=== PATIENT | male | born 1950 | race Caucasian/White ===

== ENCOUNTER 2016-05-16 03:18 | Emergency (ER) | payer MEDICAID ==
[~2016-05-16] VITALS: Ht 185.4 cm; Wt 90.0 kg
[~2016-05-16 03:18] MED LIST: CYCLOBENZAPRINE5 M1 PO; DIOVAN320 MG PO; EXFORGE 10/320 PO; FLEXERIL 1010 MG/TAB PO; HCTZ 25MG25 MG PO; HYGROTON 2525 MG/TAB PO; ISMO 20MG20 MG; ISORDIL 10MG10 MG PO; LIPITOR 80MG80 MG PO; LOPRESSOR 550 MG/TAB PO; MINOXIDIL 2.5 PO; NIACIN250 M2 PO; NITROSTAT0.4 MG SL; OXYCONTIN15 MG PO; PERCOCET 325 MG1 TA2 PO; PERCOCET 325 MG1 TA3 PO; PRILOSEC 20MG20 MG PO; PRINIVIL40 MG PO; PROTONIX 40MG T40 MG PO; PROTONIX I40 MG/VIAL; TOPROL XL100 MG PO; WELLBUTRIN SR150 M1 PO; ZOCOR40 MG PO; ZYBAN150 MG PO
[2016-05-16 03:21] VITALS: TEMP 98.8
[2016-05-16 04:19] VITALS: BP 132/86; PULSE 92
== END 2016-05-16 04:21 | disposition home or self-care (01) ==
LOC: COL.ER 03:18
DX: M54.5 Low back pain (principal); I10 Essential (primary) hypertension; X50.0XXA Overexertion from strenuous movement or load, initial encounter; Y93.F2 Activity, caregiving, lifting; F17.200 Nicotine dependence, unspecified, uncomplicated
CPT/HCPCS: J1170

== ENCOUNTER 2016-11-10 23:01 | Emergency (ER) | payer MEDICAID ==
[~2016-11-10] VITALS: Ht 185.4 cm; Wt 81.8 kg
[2016-11-10 23:04] VITALS: TEMP 98
[2016-11-10] MEDS ORDERED: MINOXIDIL 2.5 PO (23:11)
[2016-11-10] MEDS ORDERED: ZANAFLEX 4MG TAB4 MG PO (23:12)
[2016-11-10] MEDS ORDERED: NIACOR500 MG PO (23:13)
[2016-11-11 00:02] LABS: BASO % 0.3 % (0.0-2.0); EOS # 0.1 (0.0-0.7); EOS % 1.2 % (0-4.0); GRAN # 5.2 (1.4-6.5); GRAN % 46.3 % (42.2-75.2); LYMPH # 5.1 (1.2-3.4); LYMPH % 45.1 % (20.0-51.0); MEAN CELL VOLUME 98 fl (80.0-100.0); MEAN CORPUSCULAR HGB CONC 35 g/dl (33.0-37.0); MEAN PLATELET VOLUME 9.3 fl (7.4-10.4); MONO # 0.7 (0.1-0.6); MONO % 6.4 % (1.7-9.3); PLATELET COUNT 214 K/mm3 (130-400); RED BLOOD COUNT 5.51 M/mm3 (4.20-5.60); REDCELL DISTRIBUTION WIDTH-CV 14.6 % (11.5-14.5); WHITE BLOOD COUNT 11.2 K/mm3 (4.8-10.8)
[2016-11-11 00:03] LABS: HEMATOCRIT 54.2 % (42.0-52.0); HEMOGLOBIN 18.7 g/dl (13.5-18.0); MEAN CORPUSCULAR HEMOGLOBIN 34 pg (27.0-31.0)
[2016-11-11 00:04] LABS: PH 6 (5-8); SQUAMOUS EPITHELIAL None Seen /hpf; URINE APPEARANCE Clear; URINE BACTERIA None Seen /hpf; URINE BILIRUBIN Negative (NEGATIVE); URINE BLOOD Negative (NEGATIVE); URINE COLOR Straw; URINE GLUCOSE Negative (NEGATIVE); URINE KETONE Negative (NEGATIVE); URINE RBC None Seen /hpf; URINE UROBILINOGEN Negative (NEGATIVE); URINE WBC None Seen /hpf
[2016-11-11 00:11] LABS: ADJUSTED CALCIUM 8.8 mg/dL (8.4-10.2); ALANINE AMINOTRANSFERASE 77 U/L (21-72); ALBUMIN 4.2 gm/dL (3.5-5.0); ALKALINE PHOSPHATASE 69 U/L (50-136); ANION GAP 17 mmol/L (7-16); BILIRUBIN,TOTAL 0.6 mg/dL (0.0-1.0); BLOOD UREA NITROGEN 4 mg/dL (9-20); CARBON DIOXIDE 21 mmol/L (22-30); CHLORIDE 106 mmol/L (98-107); CREATININE, serum 0.72 mg/dL (0.66-1.25); GLUCOSE 98 mg/dL (74-106); POTASSIUM 3.3 mmol/L (3.4-5.0); SODIUM 144 mmol/L (137-145)
[2016-11-11 00:31] LABS: TROPONIN-I < 0.012 ng/mL (0.000-0.034)
[2016-11-11 00:38] VITALS: BP 124/77
[2016-11-11 01:44] VITALS: PULSE 89
== END 2016-11-11 01:44 | disposition home or self-care (01) ==
LOC: COL.ER 23:01
PROVIDERS: Emergency Medicine
DX: S39.012A Strain of muscle, fascia and tendon of lower back, initial encounter (principal); F10.129 Alcohol abuse with intoxication, unspecified; I10 Essential (primary) hypertension; F17.200 Nicotine dependence, unspecified, uncomplicated; Y90.8 Blood alcohol level of 240 mg/100 ml or more; W10.9XXA Fall (on) (from) unspecified stairs and steps, initial encounter; Y92.009 Unspecified place in unspecified non-institutional (private) residence as the place of occurrence of the external cause
CPT/HCPCS: J1170; J7030

== ENCOUNTER 2016-12-06 21:33 | Emergency (ER) | payer MEDICARE, MEDICAID ==
[~2016-12-06 21:33] MED LIST changes: +NIACOR500 MG PO; +ZANAFLEX 4MG TAB4 MG PO
[2016-12-06 21:34] VITALS: TEMP 97
[2016-12-06 22:02] LABS: BASO % 0.3 % (0.0-2.0); EOS # 0.1 (0.0-0.7); GRAN # 5.2 (1.4-6.5); GRAN % 53.8 % (42.2-75.2); HEMATOCRIT 52.6 % (42.0-52.0); HEMOGLOBIN 18.4 g/dl (13.5-18.0); LYMPH # 3.6 (1.2-3.4); MEAN CELL VOLUME 98 fl (80.0-100.0); MEAN CORPUSCULAR HEMOGLOBIN 34 pg (27.0-31.0); MEAN CORPUSCULAR HGB CONC 35 g/dl (33.0-37.0); MEAN PLATELET VOLUME 9.4 fl (7.4-10.4); MONO # 0.7 (0.1-0.6); MONO % 7.4 % (1.7-9.3); PLATELET COUNT 227 K/mm3 (130-400); RED BLOOD COUNT 5.38 M/mm3 (4.20-5.60); REDCELL DISTRIBUTION WIDTH-CV 13.4 % (11.5-14.5); WHITE BLOOD COUNT 9.7 K/mm3 (4.8-10.8)
[2016-12-06 22:11] LABS: ADJUSTED CALCIUM 9.2 mg/dL (8.4-10.2); ALBUMIN 4.3 gm/dL (3.5-5.0); BILIRUBIN,TOTAL 0.8 mg/dL (0.0-1.0); CALCIUM 9.4 mg/dL (8.4-10.2); CREATININE, serum 0.73 mg/dL (0.66-1.25); POTASSIUM 3.3 mmol/L (3.4-5.0); TOTAL PROTEIN 8.2 gm/dL (6.4-8.2)
[2016-12-06] MEDS ORDERED: ALDACTONE 25MG25 M1 PO (22:38)
[2016-12-06] MEDS ORDERED: COMBIRESP IH (22:40)
[2016-12-06] MEDS ORDERED: CHANTIX 1MG1 MG PO (22:41)
[2016-12-06 23:04] LABS: PH 6 (5-8); SQUAMOUS EPITHELIAL None Seen /hpf; URINE APPEARANCE Clear; URINE BACTERIA None Seen /hpf; URINE BILIRUBIN Negative (NEGATIVE); URINE BLOOD Negative (NEGATIVE); URINE COLOR Straw; URINE GLUCOSE Negative (NEGATIVE); URINE KETONE Negative (NEGATIVE); URINE RBC 0-2 /hpf; URINE UROBILINOGEN Negative (NEGATIVE); URINE WBC 0-2 /hpf
[2016-12-06] MEDS ORDERED: PERCOCET 325 MG1 TA3 PO (23:50)
[2016-12-06 23:53] VITALS: BP 137/90; PULSE 93
== END 2016-12-06 23:58 | disposition home or self-care (01) ==
LOC: COL.ER 21:33
PROVIDERS: Emergency Medicine
DX: S29.012A Strain of muscle and tendon of back wall of thorax, initial encounter (principal); S39.012A Strain of muscle, fascia and tendon of lower back, initial encounter; S06.9X9A Unspecified intracranial injury with loss of consciousness of unspecified duration, initial encounter; F10.120 Alcohol abuse with intoxication, uncomplicated; Y90.7 Blood alcohol level of 200-239 mg/100 ml; I10 Essential (primary) hypertension; E78.5 Hyperlipidemia, unspecified; F17.200 Nicotine dependence, unspecified, uncomplicated; R40.2412 Glasgow coma scale score 13-15, at arrival to emergency department; W13.2XXA Fall from, out of or through roof, initial encounter; Y92.028 Other place in mobile home as the place of occurrence of the external cause
CPT/HCPCS: J2765; J3010; J7030

== ENCOUNTER 2018-06-11 11:56 | Inpatient (IN) | payer MEDICAID ==
[2018-06-11] VITALS (575 sets, daily range): BP systolic 109–117; BP diastolic 62–79; PULSE 105–113; TEMP 97.9–98; O2SAT 84–95
[~2018-06-11] VITALS: Ht 185.4 cm; Wt 80.5 kg
[~2018-06-11 11:56] MED LIST changes: +ALDACTONE 25MG25 M1 PO; +CHANTIX 1MG1 MG PO; +COMBIRESP IH
[2018-06-11 12:13] LABS: BASO % 0.2 % (0.0-2.0); EOS % 0.2 % (0-4.0); GRAN # 16.7 (1.4-6.5); GRAN % 84.8 % (42.2-75.2); HEMOGLOBIN 11.9 g/dl (13.5-18.0); INR 2.1 (0.8-3.0); LYMPH # 1.4 (1.2-3.4); LYMPH % 7.3 % (20.0-51.0); MEAN CELL VOLUME 103 fl (80.0-100.0); MEAN CORPUSCULAR HEMOGLOBIN 35 pg (27.0-31.0); MEAN CORPUSCULAR HGB CONC 34 g/dl (33.0-37.0); MEAN PLATELET VOLUME 10.6 fl (7.4-10.4); MONO # 1.4 (0.1-0.6); PLATELET COUNT 148 K/mm3 (130-400); PROTHROMBIN TIME 23.5 SECONDS (9.7-12.8); RED BLOOD COUNT 3.37 M/mm3 (4.20-5.60); REDCELL DISTRIBUTION WIDTH-CV 15.6 % (11.5-14.5)
[2018-06-11 12:14] LABS: HEMATOCRIT 34.7 % (42.0-52.0)
[2018-06-11 12:18] LABS: ALBUMIN 2.7 gm/dL (3.5-5.0); BILIRUBIN,TOTAL 5.5 mg/dL (0.0-1.0); CALCIUM 8.4 mg/dL (8.4-10.2); CREATININE, serum 0.8 mg/dL (0.66-1.25); POTASSIUM 4.2 mmol/L (3.4-5.0); TOTAL PROTEIN 7.9 gm/dL (6.4-8.2)
[2018-06-11 13:15] LABS: TROPONIN-I 0.029 ng/mL (0.000-0.035)
[2018-06-11] MEDS ORDERED: DULERA1 AR1 INH (13:15)
[2018-06-11] MEDS ORDERED: PROBIOTIC ACID1 EAC3 PO (13:16)
[2018-06-11] MEDS ORDERED: K-DUR 10 MEQ T10 MEQ PO (13:16)
--- NOTE | 2018-06-11 14:59 | NUR ---
Pt was transfered to ICU 7 from ED. He is awake and A/Ox4. He is unable to transfer from cart to bed independently, assistance x3 required. Saline lock to right AC is free of complications. Resp are labored at rest, pt remains on 5L O2 per oxymask. Pt states he does not know the medications he takes and does not have a list. Dr. Hernandez's office notified and to fax current list. Allergies and pharm updated.
[2018-06-11 18:19] LABS: IRON,SERUM 43 ug/dL (35-150)
[2018-06-11 18:28] LABS: TOTAL IRON BINDING CAPACITY 148 ug/dL (261-462)
--- NOTE | 2018-06-11 18:44 | NUR ---
Pt has had an uneventful shift since arriving to ICU. He is attempting to use bed mcmillan. Still have not received fax from Dr. Hernandez's office regarding current med list.
[2018-06-11 18:55] LABS: FERRITIN 755 ng/mL (18-464)
--- NOTE | 2018-06-11 19:15 | NUR ---
BEDSIDE REPORT RECEIVED FROM SELVIN FANG RN. PATIENT HAD INCONTINENT BM IN BED. COMPLETE BED LINEN CHANGE DONE AT THIS TIME. VS WNL. SPO2 DROPS TO 86% PATIENT MOVES AROUND IN BED. HE HAS AUDIBLE WHEEZES. RT CALLED FOR BREATHING TREATMENT. WILL CONTINUE TO MONITOR.
--- NOTE | 2018-06-11 19:35 | NUR ---
pt asked for breathing tx feeling short of breath. states after tx that the tx helped alot.
--- NOTE | 2018-06-11 22:48 | NUR ---
pt called for breathing tx he got up to bedside commode and was short of breath. pt was put up to 10l oxymask only sating 86%. prn tx given pt states it helped alot. shortness of breath did get better. i talked to pt about bipap and he said he would try it but not sure if he could handle it. after tx sats up to 92% on 10L oxymask. left on this o2 for the time being. RN notified.
--- NOTE | 2018-06-11 23:00 | NUR ---
Patient recently up to bedside commode for BM. His work of breathing increased and SP02 decreases at this time to 85%. Patient given 10L O2 via oxymask at this time. He SPo2 elevates to 90%. He is reminded to slow his breathing, as he is becoming tachypneic. Patient transfers well with 1:1 assist. He is assisted back to be and RT called for breathing treatment.
--- NOTE | 2018-06-11 23:27 | NUR ---
I CALLED [facility] TO TALK TO THEM ABOUT PT'S INCREASING WORK OF BREATHING AND INCREASE IN OXYGEN USE. i ALSO TALKED TO THE [facility] NURSE ABOUT CHANGING PRN DUONEB TO Q4 AND PRN AND CHANGING ADVAIR TO PULMICORT SINCE PT CANNOT TAKE A DEEP ENOUGH BREATH TO GET THE ADVAIR IN. I SUGGESTED BIPAP AND SAID I HAD ALREADY TALKED ABOUT IT TO PT AND HE SAID HE WOULD TRY IT BUT NOT SURE IF HE CAN HANDLE IT. [facility] NURSE ASKED ME ABOUT BREATH SOUNDS AND AMOUNT OF O2 PT IS CURRENTLY ON 10L OXYMASK SATING 91%. [facility] NURSE SAID SHE WOULD PASS INFO ON TO DR. ARROYO.
[2018-06-12] VITALS (1190 sets, daily range): BP systolic 95–146; BP diastolic 59–74; PULSE 108–126; TEMP 97.9–99.8; O2SAT 61–100
[2018-06-12 00:51] LABS: ARTERIAL BLD GAS O2 SATURATION 93.1 % (92-100); ARTERIAL BLD GAS TCO2 CT 29.2; ARTERIAL BLOOD GAS BASE EXCESS 4.1 (-2-2); ARTERIAL BLOOD GAS PCO2 39.3 mmHg (35-45); ARTERIAL BLOOD GAS PO2 65.1 mmHg (80-100); ARTERIAL BLOOD GAS pH 7.47 (7.35-7.45)
--- NOTE | 2018-06-12 04:15 | NUR ---
Patient comes off tele at this time. I go to his room to check on him. He has disconnected himself from all monitors, incontinent of BM in bed, Patient is found sitting on commode. He is not wearing O2 and is dusky in color. I apply oxymask and then encourage him to slow his breathing and take deep breaths. I then inform him that the bed alarm will be implemented at this time for his safety.
--- NOTE | 2018-06-12 04:54 | NUR ---
pt found out of bed without o2 on sats are 84%, rr 36 labored. RN called me and I gave prn duoneb breathing tx. after tx on 12 oxy mask sats are 91%
[2018-06-12 05:09] LABS: BASO % 0.2 % (0.0-2.0); EOS # 0.1 (0.0-0.7); EOS % 0.5 % (0-4.0); GRAN # 14.9 (1.4-6.5); HEMATOCRIT 33.1 % (42.0-52.0); HEMOGLOBIN 11.3 g/dl (13.5-18.0); LYMPH # 2.1 (1.2-3.4); LYMPH % 11.2 % (20.0-51.0); MEAN CELL VOLUME 102 fl (80.0-100.0); MEAN CORPUSCULAR HEMOGLOBIN 35 pg (27.0-31.0); MEAN CORPUSCULAR HGB CONC 34 g/dl (33.0-37.0); MEAN PLATELET VOLUME 10.7 fl (7.4-10.4); MONO # 1.4 (0.1-0.6); MONO % 7.5 % (1.7-9.3); PLATELET COUNT 152 K/mm3 (130-400); RED BLOOD COUNT 3.25 M/mm3 (4.20-5.60); REDCELL DISTRIBUTION WIDTH-CV 15.1 % (11.5-14.5)
[2018-06-12 05:13] LABS: INR 1.9 (0.8-3.0); PROTHROMBIN TIME 21.1 SECONDS (9.7-12.8)
[2018-06-12 05:22] LABS: ALBUMIN 2.6 gm/dL (3.5-5.0); BILIRUBIN,TOTAL 5.2 mg/dL (0.0-1.0); CALCIUM 8.3 mg/dL (8.4-10.2); CREATININE, serum 0.81 mg/dL (0.66-1.25); TOTAL PROTEIN 7.6 gm/dL (6.4-8.2)
--- NOTE | 2018-06-12 07:14 | NUR ---
BEDSIDE REPORT GIVEN TO KAYE LIMA.
--- NOTE | 2018-06-12 07:15 | NUR ---
Report received from Anaya RESTREPO and care resumed.
--- NOTE | 2018-06-12 08:19 | NUR ---
Pt getting echo at this time.
--- NOTE | 2018-06-12 09:00 | NUR ---
Radiology here at bedside for paracentesis at this time.
[2018-06-12 09:52] LABS: PERITONEAL -POLYMORPHONUCLEAR 15.6 % (0-25); PERITONEAL FLUID RBC 1000 /mm3 (0-0)
--- NOTE | 2018-06-12 10:39 | NUR ---
After paracentesis pt given CBB with linen change. Pt does remain short of breath, sats mid 90's but pt does say it is "easier to breath". Will continue to monitor.
--- NOTE | 2018-06-12 13:46 | NUR ---
SW attended clincal rounds. Patient lives independently at home with his son. His PCP is Dr Hernandez and he obtains prescriptions from [facility]. Patient does not use any home health or medical equipment in the home. Patient does have advance directives and those forms are on his chart. SW will continue to follow and assist with any needs.
--- NOTE | 2018-06-12 14:30 | NUR ---
SEVERAL ATTEMPTS MADE TO PLACE PT ON BIPAP AT THIS TIME. ADJUSTED PRESSURES SEVERAL TIMES TO ATTEMPT TO MAKE PT COMFORTABLE. PT STATES, "IT IS JUST TOO MUCH" AND AT THIS TIME IS REFUSING TO WEAR BIPAP. DR. HORN AND DR. HIGUERA MADE AWARE.
--- NOTE | 2018-06-12 14:39 | NUR ---
Dr Paniagua here at this time.
--- NOTE | 2018-06-12 15:16 | NUR ---
Dr Paniagua and Dr Perez at bedside having meeting with patient and son regarding plan of care at this time.
--- NOTE | 2018-06-12 16:12 | NUR ---
SW met with patient and family about options if patient decides to go home with hospice care. JULIA contacted Aimee at [facility] to find out if patient's insurance covers hospice care and also to get more information on nursing and how much care patient will have. JULIA relayed all of this information to the patient and his family. At this time patient and family are deciding what they would like to do and once they make a decision, they will contact nurse and SW.
--- NOTE | 2018-06-12 16:24 | NUR ---
JULIA met with patient, family, nurse, and Dr about their decision. At this time patient has decided not to go hospice.
--- NOTE | 2018-06-12 17:04 | NUR ---
PT ON YET INTUBATED
--- NOTE | 2018-06-12 17:36 | NUR ---
PT INTUBATED WITH A #8.0 SECURED 24@LIP PER ANESTHESIA. [facility]. CONSISTANT, GOOD COLOR CHANGE ON CO2 DETECTOR. PT PLACED ON PREVIOUSLY ORDERED SETTINGS PER DR. HIGUERA. ABG AND CXR PENDING AT THIS TIME.
--- NOTE | 2018-06-12 18:00 | NUR ---
Anesthesia at bedside and left arterial line placed with appropriate wave form noted. Pt then intubated at 1736 with at 8.0 Et tube. OG placed to LIS with orange colored return. Pt in restraints. Will continue to follow.
[2018-06-12 18:35] LABS: ARTERIAL BLD GAS O2 SATURATION 98.1 % (92-100); ARTERIAL BLD GAS TCO2 CT 29.7; ARTERIAL BLOOD GAS BASE EXCESS 4.8 (-2-2); ARTERIAL BLOOD GAS HCO3 28.5 meq/L (22-26); ARTERIAL BLOOD GAS PCO2 38.6 mmHg (35-45); ARTERIAL BLOOD GAS PO2 116.6 mmHg (80-100); ARTERIAL BLOOD GAS pH 7.49 (7.35-7.45)
--- NOTE | 2018-06-12 18:55 | NUR ---
Followed up with [facility] regarding pt's blood pressure. IV sedation was decreased with did ask for PRN levophed drip if needed. [facility] will discuss and place orders accordingly.
--- NOTE | 2018-06-12 19:15 | NUR ---
Bedside report given to Farhana RESTREPO and Zuly RESTREPO and care transfered.
--- NOTE | 2018-06-12 21:14 | NUR ---
CHANGED VENT FILTER AND EMPTIED WATER DRAIN. PT SUCTIONED AND ORAL CARE DONE.
--- NOTE | 2018-06-12 23:52 | NUR ---
FIO2 TURNED DOWN TO 60% RN NOTIFIED.
[2018-06-13] VITALS (947 sets, daily range): BP systolic 84–131; BP diastolic 42–73; PULSE 100–125; TEMP 98.5–100.2; O2SAT 71–100
--- NOTE | 2018-06-13 01:42 | NUR ---
PT'S A-FALLON DISLODGE WHILE ATTEMPTING DRESSING CHANGE. E MELITON NOTIFIED.
--- NOTE | 2018-06-13 02:42 | NUR ---
FIO2 DECREASED TO 50% RN NOTIFIED
--- NOTE | 2018-06-13 04:04 | NUR ---
Called [facility] regarding consent for FFP as none found on chart. Patient unable to make medical decisions at this time. Son called; did not answer and unable to leave voicemail. [facility] nurse notified. As procedure is not considered urgent, physician cannot obtain consent for patient. Will have to hold off administering FFP until able to obtain consent from son. Will attempt to re-contact son.
--- NOTE | 2018-06-13 04:10 | NUR ---
Received clarification to titrate levophed order per hospital protocol.
[2018-06-13 05:04] LABS: MEAN CELL VOLUME 99 fl (80.0-100.0); MEAN CORPUSCULAR HGB CONC 35 g/dl (33.0-37.0); MEAN PLATELET VOLUME 10.6 fl (7.4-10.4); PLATELET COUNT 130 K/mm3 (130-400); RED BLOOD COUNT 2.58 M/mm3 (4.20-5.60); REDCELL DISTRIBUTION WIDTH-CV 15.6 % (11.5-14.5)
[2018-06-13 05:12] LABS: HEMATOCRIT 25.5 % (42.0-52.0); MEAN CORPUSCULAR HEMOGLOBIN 35 pg (27.0-31.0)
[2018-06-13 05:17] LABS: ALBUMIN 1.8 gm/dL (3.5-5.0); BILIRUBIN,TOTAL 3.3 mg/dL (0.0-1.0); CALCIUM 6.4 mg/dL (8.4-10.2); CREATININE, serum 0.67 mg/dL (0.66-1.25); TOTAL PROTEIN 5.4 gm/dL (6.4-8.2)
[2018-06-13 05:18] LABS: INR 2.2 (0.8-3.0); PROTHROMBIN TIME 24.9 SECONDS (9.7-12.8)
[2018-06-13 05:19] LABS: ARTERIAL BLD GAS O2 SATURATION 95.4 % (92-100); ARTERIAL BLD GAS TCO2 CT 29.6; ARTERIAL BLOOD GAS HCO3 28.4 meq/L (22-26); ARTERIAL BLOOD GAS PCO2 37.7 mmHg (35-45); ARTERIAL BLOOD GAS PO2 79.9 mmHg (80-100)
[2018-06-13 05:25] LABS: POTASSIUM 2.6 mmol/L (3.4-5.0)
--- NOTE | 2018-06-13 05:51 | NUR ---
SPUTUM CULTURE SENT
[2018-06-13 05:52] LABS: BAND 12 % (0-10); LYMPHOCYTE 10 % (20.0-51.0); NEUTROPHILS 68 % (42.0-75.2); PLATELET ESTIMATE DECREASED (NORMAL); TARGET CELLS 2+; TEAR DROP CELLS 1+
[2018-06-13 05:53] LABS: ANISOCYTOSIS 2+; POIKILOCYTOSIS 1+
--- NOTE | 2018-06-13 10:00 | NUR ---
Family members at bedside stating great concern for iman kenneyd. Consent obtained for blood product administration.
--- NOTE | 2018-06-13 12:30 | NUR ---
Procedural Timeout taken for Chest Tube placement with present. All in agreement. 2000mL of straw colored fluid drained by gravity that filled up first chamber while MD Jerad present. Chest tube clamped by containter exchanged. Output changed from straw colored to serosanguineous. Chamber packaging did not come with fluid for water seal - 50mL of sterile fluid added per MD Jerad into the chamber, and low suction applied. VSS remained stable, pt tolerated the procedure well. 14:00 - Pt's son and daughter at bedside and updated on pt status.
[2018-06-13 13:32] LABS: CERULOPLASMIN 23.2 mg/dL (())
--- NOTE | 2018-06-13 19:10 | NUR ---
RECEIVED REPORT AT BEDSIDE FROM KAYE BARONE.
--- NOTE | 2018-06-13 19:43 | NUR ---
Water changed and traps drained. changed out bacteria filters.
[2018-06-14] VITALS (907 sets, daily range): BP systolic 78–106; BP diastolic 49–65; PULSE 92–111; TEMP 98.2–100; O2SAT 64–100
[2018-06-14 05:07] LABS: ARTERIAL BLD GAS O2 SATURATION 96.8 % (92-100); ARTERIAL BLD GAS TCO2 CT 30.7; ARTERIAL BLOOD GAS BASE EXCESS 6.4 (-2-2); ARTERIAL BLOOD GAS HCO3 29.5 meq/L (22-26); ARTERIAL BLOOD GAS PCO2 37.1 mmHg (35-45); ARTERIAL BLOOD GAS PO2 93.2 mmHg (80-100); ARTERIAL BLOOD GAS pH 7.52 (7.35-7.45)
--- NOTE | 2018-06-14 05:12 | NUR ---
SHANECURTIS called talked to Miranda and gave her ABG results. She asked about what he has been getting RR and MV and I told her what his numbers have been. She said she would pass on to doctor and they would send over orders if they wanted anything changed.
[2018-06-14 05:32] LABS: BASO % 0.2 % (0.0-2.0); EOS # 0.3 (0.0-0.7); EOS % 2.3 % (0-4.0); GRAN % 74.6 % (42.2-75.2); HEMATOCRIT 29.4 % (42.0-52.0); HEMOGLOBIN 10.3 g/dl (13.5-18.0); LYMPH # 2.1 (1.2-3.4); LYMPH % 14.1 % (20.0-51.0); MEAN CELL VOLUME 98 fl (80.0-100.0); MEAN CORPUSCULAR HEMOGLOBIN 34 pg (27.0-31.0); MEAN CORPUSCULAR HGB CONC 35 g/dl (33.0-37.0); MEAN PLATELET VOLUME 10.1 fl (7.4-10.4); MONO # 1.2 (0.1-0.6); MONO % 8.3 % (1.7-9.3); PLATELET COUNT 119 K/mm3 (130-400)
[2018-06-14 05:45] LABS: ALBUMIN 2.3 gm/dL (3.5-5.0); CALCIUM 8.1 mg/dL (8.4-10.2); CREATININE, serum 1.01 mg/dL (0.66-1.25); MAGNESIUM 2.2 mg/dL (1.6-2.3); PHOSPHOROUS 3.7 mg/dL (2.5-4.5); POTASSIUM 3.6 mmol/L (3.4-5.0); TOTAL PROTEIN 6.7 gm/dL (6.4-8.2)
--- NOTE | 2018-06-14 07:15 | NUR ---
PHRMARTHAY NOTIFIED REGARDING PT'S VANCOMYCIN TROUGH AT 29.26, 0530 DOSE HELD BY THIS RN.
--- NOTE | 2018-06-14 07:22 | NUR ---
REPORT GIVEN TO KAYE SINGH. ALL LINES AND MEDICATIONS REVIEWED AT BEDSIDE. DRESSINGS FOR CHEST TUBE AND ABDOMINAL PUNCTURE CHANGED DURING SHIFT, ALL DRESSING CLEAN,DRY AND INTACT.
--- NOTE | 2018-06-14 12:15 | NUR ---
PIVOT 1.5 INITIATED AT 15ML/HR VIA OGT.
--- NOTE | 2018-06-14 14:45 | NUR ---
PT'S CHILDREN AT PT'S BEDSIDE. FAMILY UPDATED ON PT'S PROGRESS/STATUS.
--- NOTE | 2018-06-14 19:21 | NUR ---
WATER CHANGED, TUBING DRAINED, WATER DRAIN DUMPED, FILTER CHANGED.
--- NOTE | 2018-06-14 21:59 | NUR ---
Blood pressures down; currently 80/50, HR 100. Decreasing sedations has not been effective. Urine output also less than 30/hr. Called [facility] to update. Awaiting further orders.
[2018-06-15] VITALS (720 sets, daily range): BP systolic 93–106; BP diastolic 56–64; PULSE 97–110; TEMP 97.5–99; O2SAT 93–100
--- NOTE | 2018-06-15 01:00 | NUR ---
Patient opening eyes spontaneously. Able to follow simple commands at this time. Shook head no when asked if experiencing any pain. Will continue to monitor.
[2018-06-15 04:55] LABS: HEMOGLOBIN 10.4 g/dl (13.5-18.0); MEAN CELL VOLUME 99 fl (80.0-100.0); MEAN CORPUSCULAR HEMOGLOBIN 35 pg (27.0-31.0); MEAN CORPUSCULAR HGB CONC 35 g/dl (33.0-37.0); MEAN PLATELET VOLUME 10.5 fl (7.4-10.4); PLATELET COUNT 121 K/mm3 (130-400); REDCELL DISTRIBUTION WIDTH-CV 15.2 % (11.5-14.5)
[2018-06-15 04:57] LABS: HEMATOCRIT 29.8 % (42.0-52.0)
[2018-06-15 05:07] LABS: ALBUMIN 2.5 gm/dL (3.5-5.0); BILIRUBIN,TOTAL 3.1 mg/dL (0.0-1.0); CALCIUM 8.1 mg/dL (8.4-10.2); MAGNESIUM 2.1 mg/dL (1.6-2.3); POTASSIUM 3.3 mmol/L (3.4-5.0); TOTAL PROTEIN 6.9 gm/dL (6.4-8.2)
[2018-06-15 05:13] LABS: PRE ALBUMIN 5.7 mg/dL (17.6-36.0)
[2018-06-15 05:45] LABS: ARTERIAL BLD GAS O2 SATURATION 96.6 % (92-100); ARTERIAL BLOOD GAS BASE EXCESS 4.1 (-2-2); ARTERIAL BLOOD GAS HCO3 27.8 meq/L (22-26); ARTERIAL BLOOD GAS PCO2 38.3 mmHg (35-45); ARTERIAL BLOOD GAS pH 7.48 (7.35-7.45)
--- NOTE | 2018-06-15 05:52 | NUR ---
Called [facility], spoke with Miranda to report potassium level and continued low urine output. Awaiting further orders.
[2018-06-15 05:57] LABS: BAND 5 % (0-10); EOSINOPHIL 3 % (0-4); HYPOCHROMIA 2+; LYMPHOCYTE 10 % (20.0-51.0); NEUTROPHILS 73 % (42.0-75.2); PLATELET ESTIMATE DECREASED (NORMAL)
[2018-06-15 05:58] LABS: ANISOCYTOSIS 1+; TARGET CELLS 1+; TEAR DROP CELLS 1+
--- NOTE | 2018-06-15 07:30 | NUR ---
Received bedside report from KAYE Delcid. Patient was resting in bed. Patient was able to follow commands when talked to. Lines/tubes\medications were varified.
--- NOTE | 2018-06-15 07:43 | NUR ---
DECREASED FIO2 AT THIS TIME BY 5% TO 40% PER SPO2 AND PAO2
--- NOTE | 2018-06-15 08:00 | NUR ---
Unable to assess patients oriantation due to being on the ventilator. Unable to assess patients gait as well. Patient is able to follow verbal commands.
--- NOTE | 2018-06-15 09:14 | NUR ---
PT PLACED ON 2MIN TRIAL OF PS 5/PEEP 5. PT DID WELL. PT AT THIS TIME PLACED ON 14/[address] BRAVO AWARE AND IN AGREANCE OF TRIAL. WILL CONTINUE TO MONITOR.
[2018-06-15 11:22] LABS: ALPHA 1 ANTITRYPSIN TOTAL 198 mg/dL (())
--- NOTE | 2018-06-15 12:00 | NUR ---
PAtient resting in bed. Patient has two visitors in the room. Patient responds to commands asked of him.
--- NOTE | 2018-06-15 12:30 | NUR ---
Called Dr Mars for chest tube order clarification. Will place to water seal.
[2018-06-15 12:41] LABS: ARTERIAL BLD GAS O2 SATURATION 96.6 % (92-100); ARTERIAL BLOOD GAS BASE EXCESS 5.6 (-2-2); ARTERIAL BLOOD GAS HCO3 29.7 meq/L (22-26); ARTERIAL BLOOD GAS PCO2 41.8 mmHg (35-45); ARTERIAL BLOOD GAS PO2 94.6 mmHg (80-100); ARTERIAL BLOOD GAS pH 7.47 (7.35-7.45)
[2018-06-15 14:12] LABS: ANTISMOOTH MUSCLE ANTIBODY Negative (Negative)
--- NOTE | 2018-06-15 16:49 | NUR ---
Pt remains resting on vent with sedation off. Pt opens eyes to speech and follows simple commands, nods yes or no to questions. Pt's son at bedside and updated on status throughout day. Questions answered. No concerns at this time, will continue to follow.
--- NOTE | 2018-06-15 17:00 | NUR ---
Pt not on sedation at this time, no sedation vacation required.
--- NOTE | 2018-06-15 17:42 | NUR ---
Pt alert/awake. Able to pick head up off of pillow and changing channel on remote.
--- NOTE | 2018-06-15 18:41 | NUR ---
SYSTOLIC BP'S IN 90'S. AWARE AND SMART CARE TRIAL TO BE DONE. PT DOES NOT APPEAR SYMPTOMATIC AT THIS TIME. WILL CONTNUE TO MONITOR.
--- NOTE | 2018-06-15 19:25 | NUR ---
REPORT RECEIVED FROM KAYE LIMA AT BEDSIDE. ALL LINES AND DRAINS REVIEWD.
--- NOTE | 2018-06-15 19:33 | NUR ---
Report given to Zuly RESTREPO and care transfered.
--- NOTE | 2018-06-15 19:45 | NUR ---
REPORT RECEIVED FROM KAYE LIMA. LINES AND TUBES REVIEWED AT BEDSIDE.
--- NOTE | 2018-06-15 20:50 | NUR ---
ORDER REGARDING HEPARIN CLARIFIED WITH [facility]. PT ON LOW DOSE HEPARIN PROTOCOL. ANTI XA AT 0.84, ORDERS RECEIVED TO RE CHECK HEP XA AT 2200. HEPARIN DRIP CURRENTLY ON HOLD UNTIL RESULTS AT 2200.
--- NOTE | 2018-06-15 21:50 | NUR ---
RECEIVED CALL FROM [facility]. PT'S HEPARIN DICTONTINUED PT HAD RECENT SUBDURAL HEMATOMA A MONTH AGO. PT'S HEP XA AT 2200 CANCELLED.
--- NOTE | 2018-06-15 22:53 | NUR ---
CHANGED OUT FILTER.
[2018-06-16] VITALS (1190 sets, daily range): BP systolic 98–116; BP diastolic 60–69; PULSE 100–109; TEMP 98.2–98.8; O2SAT 90–100
--- NOTE | 2018-06-16 01:32 | NUR ---
TF RESIDUALS HAS BEEN INCREASING, LAST RSIDUAL WAS 200 ML. RATE AT 45 ML/HR STILL. WILL CHECK AGAIN AT 0400 AND ADVANCE TO GOAL RATE OF 59 ML/HR IF RESIDUAL IS LESS.
--- NOTE | 2018-06-16 05:06 | NUR ---
NO SEDATION INFUSING AT THIS PT AT THIS SHIFT.
[2018-06-16 05:32] LABS: BASO # 0.1 (0.0-0.2); BASO % 0.5 % (0.0-2.0); EOS # 0.5 (0.0-0.7); EOS % 4.6 % (0-4.0); GRAN # 8.3 (1.4-6.5); GRAN % 70.3 % (42.2-75.2); LYMPH # 1.5 (1.2-3.4); LYMPH % 12.8 % (20.0-51.0); MEAN CELL VOLUME 102 fl (80.0-100.0); MEAN CORPUSCULAR HEMOGLOBIN 35 pg (27.0-31.0); MEAN CORPUSCULAR HGB CONC 34 g/dl (33.0-37.0); MEAN PLATELET VOLUME 10.6 fl (7.4-10.4); MONO # 1.4 (0.1-0.6); MONO % 11.4 % (1.7-9.3); PLATELET COUNT 121 K/mm3 (130-400)
[2018-06-16 05:33] LABS: HEMATOCRIT 29.5 % (42.0-52.0)
[2018-06-16 05:43] LABS: ALBUMIN 2.4 gm/dL (3.5-5.0); BILIRUBIN,TOTAL 3.4 mg/dL (0.0-1.0); CALCIUM 8.2 mg/dL (8.4-10.2); CREATININE, serum 0.93 mg/dL (0.66-1.25); PHOSPHOROUS 3.1 mg/dL (2.5-4.5); POTASSIUM 3.5 mmol/L (3.4-5.0); TOTAL PROTEIN 6.6 gm/dL (6.4-8.2)
[2018-06-16 06:03] LABS: ARTERIAL BLD GAS O2 SATURATION 94.2 % (92-100); ARTERIAL BLD GAS TCO2 CT 27.9; ARTERIAL BLOOD GAS BASE EXCESS 3.2 (-2-2); ARTERIAL BLOOD GAS HCO3 26.8 meq/L (22-26); ARTERIAL BLOOD GAS PCO2 37.2 mmHg (35-45); ARTERIAL BLOOD GAS PO2 74.1 mmHg (80-100); ARTERIAL BLOOD GAS pH 7.48 (7.35-7.45)
--- NOTE | 2018-06-16 07:15 | NUR ---
PT PLACED ON SMARTCARE TRIAL AT THIS TIME. PT TOLERATING VERY WELL. RESPONDING WELL. VT: 537, RR: 18, PEAK: 25, MV:9.12, SPO2 95%, HR: 105
--- NOTE | 2018-06-16 07:40 | NUR ---
REPORT GIVEN TO KAYE JONES.
--- NOTE | 2018-06-16 08:00 | NUR ---
INITIAL ASSESSMENT COMPLETED. PATIENT AWAKE, BUT COMFORTABLE IN ROOM. HE IS CURRENTLY ON A SMARTCARE TRIAL. TOLERATING WELL. PATIENT WAS BOOSTED UP IN BED AND REPOSITIONED, DENIES ANY FURTHER REQUESTS AT THIS TIME.
--- NOTE | 2018-06-16 09:33 | NUR ---
PT REMAINS ON SMARTCARE AT THIS TIME.
[2018-06-16 10:29] LABS: INR 1.6 (0.8-3.0); PROTHROMBIN TIME 18.2 SECONDS (9.7-12.8)
--- NOTE | 2018-06-16 14:00 | NUR ---
SON AND DAUGHTER IN LAW AT BEDSIDE. DISCUSSED WITH FAMILY THE PLANS. PATIENT WAS ABLE TO WRITE ON A PIECE OF PAPER AND SAY HE WANTS THE BREATHING TUBE OUT NOW. HE STATES IF THE TUBE COMES OUT AND HIS BREATHING GETS WORSE, HE DOES NOT WANT TO BE REINTUBATED. AFTER TALKING WITH FAMILY AND PATIENT SOME MORE, IT WAS DECIDED THAT PATIENT WILL REMAIN INTUBATED THROUGH THE NIGHT. HE WILL BE EXTUBATED TOMORROW MORNING WITH PLANS TO GO COMFORT CARE. FAMILY WILL WORK WITH [facility] AT HOME.
--- NOTE | 2018-06-16 14:30 | NUR ---
ULTRASOUND AT BEDSIDE TO DO PARACENTESIS. CONSENT HAS BEEN SIGNED.
[2018-06-16 16:12] LABS: PERITONEAL -POLYMORPHONUCLEAR 14.1 % (0-25); PERITONEAL FLUID RBC 1000 /mm3 (0-0)
--- NOTE | 2018-06-16 17:00 | NUR ---
SEDATION VACATION NOT DONE DUE TO PATIENT NOT BEING ON ANY SEDATION AT THIS TIME.
--- NOTE | 2018-06-16 19:05 | NUR ---
Bedside report received from KAYE Larson. Patient repositioned and moved up in better to more comfortable position. Currenlty watching TV and in no distress.
--- NOTE | 2018-06-16 19:17 | NUR ---
REPORT GIVEN TO KAYE DINH.
--- NOTE | 2018-06-16 20:42 | NUR ---
Assessment complete; patient alert and oriented and following commands appropriately. Not currenlty in soft wrist restraints. Called [facility] to notify that patient still has order for restraints if needed but not currently using them. Received ok to keep order in case of need.
--- NOTE | 2018-06-16 21:45 | NUR ---
Patient's son called for an update. Explained that patient was still on the ventilator and updated on current status. Family requested that nursing staff call in the morning prior to attempting extubation as they would like to try to be present. Will pass on the morning nursing staff. All questions and concerns addressed.
[2018-06-17] VITALS (976 sets, daily range): BP systolic 106–119; BP diastolic 58–71; PULSE 100–112; TEMP 97.9–98.9; O2SAT 84–100
--- NOTE | 2018-06-17 02:00 | NUR ---
Patient alert and oriented. Able to utilize call light when needing assistance. Requesting frequent repositiong and boosting up in bed. No concerns at this time.
[2018-06-17 05:29] LABS: HEMOGLOBIN 10.6 g/dl (13.5-18.0); MEAN CELL VOLUME 101 fl (80.0-100.0); MEAN CORPUSCULAR HEMOGLOBIN 34 pg (27.0-31.0); MEAN CORPUSCULAR HGB CONC 34 g/dl (33.0-37.0); MEAN PLATELET VOLUME 10.8 fl (7.4-10.4); PLATELET COUNT 125 K/mm3 (130-400); REDCELL DISTRIBUTION WIDTH-CV 15.1 % (11.5-14.5)
[2018-06-17 05:30] LABS: HEMATOCRIT 31.3 % (42.0-52.0)
[2018-06-17 05:41] LABS: CALCIUM 8.3 mg/dL (8.4-10.2); CREATININE, serum 0.91 mg/dL (0.66-1.25); POTASSIUM 3.3 mmol/L (3.4-5.0)
[2018-06-17 06:12] LABS: BAND 3 % (0-10); BASOPHIL 2 % (0-2); EOSINOPHIL 4 % (0-4); LYMPHOCYTE 20 % (20.0-51.0); NEUTROPHILS 66 % (42.0-75.2); NUCLEATED RED BLOOD CELL 1 (0-6); PLATELET ESTIMATE DECREASED (NORMAL)
[2018-06-17 06:13] LABS: ANISOCYTOSIS 1+; TARGET CELLS 2+; TOXIC GRANULATION PRESENT
--- NOTE | 2018-06-17 07:15 | NUR ---
Received bedside report from KAYE Delcid. Patient was awake and relaxing in bed. Medications varified.
--- NOTE | 2018-06-17 10:01 | NUR ---
SW attended clinical rounds. The plan is to extubate patient today once family has arrived and patient has requested to go home with hospice. SW was informed patient's family is working with a hospice company but SW will be available to family.
--- NOTE | 2018-06-17 11:22 | NUR ---
Called Patients sonDelbert to discuss information regarding his father. Son did not answer at either phone numbers that was provided and unable to leave a voicemail. Patient is wanting to remove ET Tube.
--- NOTE | 2018-06-17 12:31 | NUR ---
JULIA met with patient, patient's family and Patient and family have decided not go with comfort care at this time but the patient would still like to be extubated.
--- NOTE | 2018-06-17 14:02 | NUR ---
Removed chest tube at 0910.
--- NOTE | 2018-06-17 15:32 | NUR ---
Patient complaining of left abdominal pain. Called Dr. Mittal to request an IV analgesic.
--- NOTE | 2018-06-17 15:58 | NUR ---
PT EXTUBATED PER DR. BRAVO W/O INCIDENT. PT PLACED ON 4 LPM OXYMASK. JOHN PROCEDURE VERY WELL W/O COMPLAINT.
--- NOTE | 2018-06-17 17:25 | NUR ---
Pt extubated to 4l\\OM at 1558. At 1715 pt sats 78% with good wave form noted. Encouraged pt to take slow deep breaths. Sats not increasing. O2 had to be increased to 12L to maintain sat at 90%. Dr Adamson was called. Pt verbally saying he "is fine, leave me alone and just give me time." spoke with pt on the phone and explained that with pt making himself a full code earlier today we would not have a choice but to reintubate if pt status did not improve. Pt did agree to try bipap. RT called. Will get ABG and follow up with Dr Adamson with results. Family was called and son is back at bedside. Will continue to follow.
[2018-06-17 17:56] LABS: ARTERIAL BLD GAS O2 SATURATION 95.2 % (92-100); ARTERIAL BLD GAS TCO2 CT 28.8; ARTERIAL BLOOD GAS BASE EXCESS 4.1 (-2-2); ARTERIAL BLOOD GAS HCO3 27.6 meq/L (22-26); ARTERIAL BLOOD GAS PCO2 37.7 mmHg (35-45); ARTERIAL BLOOD GAS PO2 77.7 mmHg (80-100); ARTERIAL BLOOD GAS pH 7.48 (7.35-7.45)
--- NOTE | 2018-06-17 19:18 | NUR ---
Report given to Farhana Casarez and care transfered.
--- NOTE | 2018-06-17 23:15 | NUR ---
Patient reporting dry mouth. Oral swabs provided. Patient repositioned; no other complaints at this time.
[2018-06-18] VITALS (393 sets, daily range): BP systolic 92–119; BP diastolic 51–70; PULSE 92–108; TEMP 97.5–99.1; O2SAT 72–100
--- NOTE | 2018-06-18 00:45 | NUR ---
Patient requesting oral swabs. Oxy mask placed at 6L and allowed a break from BIPAP mask.
--- NOTE | 2018-06-18 01:15 | NUR ---
Replaced BIPAP. No concerns at this time.
[2018-06-18 05:16] LABS: HEMOGLOBIN 10.9 g/dl (13.5-18.0); MEAN CELL VOLUME 101 fl (80.0-100.0); MEAN CORPUSCULAR HEMOGLOBIN 34 pg (27.0-31.0); MEAN CORPUSCULAR HGB CONC 33 g/dl (33.0-37.0); MEAN PLATELET VOLUME 11.1 fl (7.4-10.4); PLATELET COUNT 145 K/mm3 (130-400); RED BLOOD COUNT 3.23 M/mm3 (4.20-5.60); REDCELL DISTRIBUTION WIDTH-CV 15.1 % (11.5-14.5)
[2018-06-18 05:22] LABS: HEMATOCRIT 32.7 % (42.0-52.0)
[2018-06-18 05:27] LABS: CALCIUM 8.7 mg/dL (8.4-10.2); CREATININE, serum 0.94 mg/dL (0.66-1.25); MAGNESIUM 1.9 mg/dL (1.6-2.3); PHOSPHOROUS 3.6 mg/dL (2.5-4.5); POTASSIUM 3.7 mmol/L (3.4-5.0)
[2018-06-18 05:39] LABS: ARTERIAL BLD GAS O2 SATURATION 93.8 % (92-100); ARTERIAL BLD GAS TCO2 CT 38.2; ARTERIAL BLOOD GAS BASE EXCESS 11.4 (-2-2); ARTERIAL BLOOD GAS HCO3 36.6 meq/L (22-26); ARTERIAL BLOOD GAS PCO2 50.4 mmHg (35-45); ARTERIAL BLOOD GAS PO2 69.3 mmHg (80-100); ARTERIAL BLOOD GAS pH 7.48 (7.35-7.45)
[2018-06-18 05:53] LABS: BAND 4 % (0-10); EOSINOPHIL 4 % (0-4); LYMPHOCYTE 7 % (20.0-51.0); NEUTROPHILS 78 % (42.0-75.2); PLATELET ESTIMATE DECREASED (NORMAL); TARGET CELLS 2+
[2018-06-18 05:54] LABS: ANISOCYTOSIS 1+; POIKILOCYTOSIS 1+; POLYCHROMASIA 2+
[2018-06-18 05:55] LABS: TEAR DROP CELLS 1+
--- NOTE | 2018-06-18 08:00 | NUR ---
PATIENT AWAKE IN BED. HE WAS TAKEN ICE CHIPS AND WATER. HE DENIES ANY PAIN AT THIS TIME. HE IS ON 5L OXYMASK AND TOLERATING WELL.
--- NOTE | 2018-06-18 10:30 | NUR ---
RECTAL TUBE REMOVED PER DR. MCKEON' ORDERS.
--- NOTE | 2018-06-18 11:13 | NUR ---
JULIA met with patient any Amanda Bulk after clinical rounds. Amanda inquired if patient has a DPOA for healthcare decisions. Patient reports [place] and that he would contact his son to see if he has a copy.
--- NOTE | 2018-06-18 11:26 | NUR ---
I did meet with RC today along with Lamar PHILLIP in the ICU room after Dr Daxa ferrara. He verbalizes understanding that he wants to be a full code and all efforts made to keep him alive. His goal is to be able to watch his grandchildren grow up. 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 He seemed quite surprised that he was being considered for hospice care and denied knowing why this might have happened. He does not acknowledge that his health is quite poor with little chance for recovery. His goal is to do everything that he can to watch his grandchildren grow up.
--- NOTE | 2018-06-18 18:57 | NUR ---
PATIENT HAS HAD A GOOD DAY TODAY. FAMILY HAS VISITED OFF AND ON. HE WAS ABLE TO TOLERATE MORE DINNER TONIGHT. HE ATE ABOUT 50%. HE ALSO GOT UP TO THE RECLINER ONCE. RECTAL TUBE HAS BEEN REMOVED. NO STOOLS NOTED SINCE TUBE WAS REMOVED. HE DENIES ANY PAIN
--- NOTE | 2018-06-18 19:30 | NUR ---
REPORT RECEIVED FROM KAYE JONES.
--- NOTE | 2018-06-18 19:41 | NUR ---
Report given to KAYE Caruso.
--- NOTE | 2018-06-18 20:49 | NUR ---
DRESSING FROM R CHEST TUBE INCISION CHANGED IT WAS SOAKED AND HAS SOME OLD DRAINEGED, YELLOWISH IN COLOR NOTED. NOW DRESSING IS CLEAN, DRY, AND INTACT.
[2018-06-19] VITALS (609 sets, daily range): BP systolic 105–114; BP diastolic 59–74; PULSE 97–114; TEMP 98–99.6; O2SAT 87–100
[2018-06-19 06:01] LABS: HEMATOCRIT 30.8 % (42.0-52.0); HEMOGLOBIN 10.5 g/dl (13.5-18.0); MEAN CELL VOLUME 100 fl (80.0-100.0); MEAN CORPUSCULAR HEMOGLOBIN 34 pg (27.0-31.0); MEAN CORPUSCULAR HGB CONC 34 g/dl (33.0-37.0); MEAN PLATELET VOLUME 10.9 fl (7.4-10.4); PLATELET COUNT 148 K/mm3 (130-400); RED BLOOD COUNT 3.07 M/mm3 (4.20-5.60); REDCELL DISTRIBUTION WIDTH-CV 14.7 % (11.5-14.5)
[2018-06-19 06:09] LABS: ALBUMIN 2.5 gm/dL (3.5-5.0); BILIRUBIN,TOTAL 3.1 mg/dL (0.0-1.0); CALCIUM 8.4 mg/dL (8.4-10.2); CREATININE, serum 0.84 mg/dL (0.66-1.25); POTASSIUM 3.5 mmol/L (3.4-5.0)
[2018-06-19 06:12] LABS: INR 1.6 (0.8-3.0)
[2018-06-19 06:38] LABS: EOSINOPHIL 2 % (0-4); LYMPHOCYTE 19 % (20.0-51.0); NEUTROPHILS 72 % (42.0-75.2); PLATELET ESTIMATE DECREASED (NORMAL)
[2018-06-19 06:39] LABS: TARGET CELLS 1+
--- NOTE | 2018-06-19 07:21 | NUR ---
report given to KAYE Salazar.
--- NOTE | 2018-06-19 08:15 | NUR ---
PICC intact right upper arm. With sterile technique right upper arm PICC dressing change done with insertion site cleansed with ChloraPrep 1, chlorhexidine impregnated disc applied, skin prep, StatLock, and Tegaderm applied. No signs or symptoms of IV complications noted. No concerns voiced.
--- NOTE | 2018-06-19 08:30 | NUR ---
Assessment complete, patient refuses PT at this time, states "I just want to sleep." Takes meds with ease, call light within reach.
--- NOTE | 2018-06-19 10:50 | NUR ---
SW met with patient to discuss rehob options. Patient is interested in going to a post acute rehab. Patient has a friend who is a physcial therapist in [place] and he would like to go where she works. Patient is going to speak with his son and give SW choices. SW will follow up later.
--- NOTE | 2018-06-19 12:47 | NUR ---
Report called to KAYE Duarte.
--- NOTE | 2018-06-19 12:57 | NUR ---
Splitter Operator in talking to patient/family.
--- NOTE | 2018-06-19 13:23 | NUR ---
JULIA met with patient and family about rehab options. JULIA informed patient that SNF is not an option because of insurance but [facility] and [facility] does take medicaid. JULIA contacted Negar with [facility] to screen him and JULIA will send a referral to [facility].
--- NOTE | 2018-06-19 14:09 | NUR ---
Patient transferred to [facility] via wheelchair, with all belongings.
--- NOTE | 2018-06-19 14:30 | NUR ---
pT arrived to unit, oriented to room, physical assessment completed. Lungs are clear throughout, pt on 3 L via NC, bowel sounds active with very full distended abdomen, peripheral pulses 1+ bilaterally, scattered scabs and sores across legs and arms. Rt torso chest-tube site has occlusive dressing in place, when this pt arrived to unit the dressign was saturated with serous drainage, this RN replaced occlusive gauze then 4x4's then foam tape . Site is free of redness, swelling. Will continue to monitor. Weiss catheter is gravity draining clear yellow urine. Pt denies needs, call light in reach
--- NOTE | 2018-06-19 15:01 | NUR ---
PT REFUSED BIPAP LAST NIGHT AND NO LONGER WISHES TO HAVE IT. UPON TRANSFER TO MEDICAL FLOOR BIPAP PULLED OUT OF PATIENT ROOM.
--- NOTE | 2018-06-19 15:22 | NUR ---
JULIA met with patient's family about rehab referrals. JULIA reported that she have not heard from either rehab options at that time but she will keep them updated. Patient and family would prefer [facility] over [facility] in [place]. JULIA then spoke with Kyler at [facility] and they have not accepted yet but if they can accept they would not be able to admit until Friday next week. JULIA spoke with PT and at this time, they do not feel that patient is safe to go home with home health. JULIA contacted Hunter with [facility] to inquire about how much insurance covers for PT. Hunter reports Medicaid doesn't very much for PT and PT would only be able to meet with patient once or twice. JULIA spoke with ANGELITA Bills, after she met with patient and family. Negar will continue to work on referral. She will update JULIA on Friday.
--- NOTE | 2018-06-19 17:01 | NUR ---
This RN spoke with Aure Wakefield, Dr Tejeda and Dr Mars about chest tube site drainage. Dr Mccollum's has no surgical intentions, recommendation is dressing changes prn.
--- NOTE | 2018-06-19 17:50 | NUR ---
tHIS rN changed dressing to Rt torso, saturated iwth serous drainage from chest tube site. vaseline gauze and ABD in place. Fresh towel placed beneath him, fresh gown applied, warm blanket provided. Pt c/o leg spasms so pain pill provided. Denies further needs, call light in reach
--- NOTE | 2018-06-19 19:14 | NUR ---
Report given to Trini RESTREPO, pt denies needs, rt torso dressing site is dry at this time
--- NOTE | 2018-06-19 21:18 | NUR ---
PT RESTING IN BED a+OX4. PAIN 8/10 IN BILAT LEGS. PRN MEDS GIVEN. DRESSING DRY AND INTACT ON RIGHT CHEST. PICC FLUSHED WITH GOOD BLOOD RETURN. PT ON 3L O2. SHIFT ASSESSMENT COMPLETE. NO NEEDS AT THIS TIME. CALL LIGHT IN REACH
[2018-06-20 00:36] VITALS: BP 99/57; PULSE 98; TEMP 99.1
--- NOTE | 2018-06-20 01:56 | NUR ---
pt sleeping. no c/o pain. bed and towels dry, dressing intact from chest stuture. no needs at this time. call light in reach
--- NOTE | 2018-06-20 03:34 | NUR ---
pt dressing and towels/bedding saturated, changed dressing and towels. no needs at this time call light in reach
[2018-06-20 04:21] VITALS: BP 106/53; PULSE 97; TEMP 98.7
--- NOTE | 2018-06-20 05:17 | NUR ---
pt had an uneventful night. dressing was saturated one time during night at 0430. no needs at this time. call light in reach.
--- NOTE | 2018-06-20 07:20 | NUR ---
Report recieved from KAYE Feliz. Patient resting in bed in low and locked position, call light within reach. Denies needs or pain at this time. Dressing to right chest saturated with serous fluid. Sheets below also wet. This RN to change both. Weiss catheter with orange sediment filled positive drainage noted. Care assumed.
--- NOTE | 2018-06-20 07:21 | NUR ---
report given to KAYE stone.
[2018-06-20 08:00] VITALS: BP 110/61; PULSE 96; TEMP 98.2
--- NOTE | 2018-06-20 09:55 | NUR ---
Dr. Awad rounds at this time. No new orders recieved. Care ongoing.
[2018-06-20 12:15] VITALS: BP 103/61; PULSE 95; TEMP 97.6
[2018-06-20 16:50] VITALS: BP 122/73; PULSE 114; TEMP 97.5
--- NOTE | 2018-06-20 17:46 | NUR ---
Patient visits with many family members throughout day. Dressing to prior chest tube site changed multiple times as documented.
--- NOTE | 2018-06-20 19:30 | NUR ---
pt got up on his own to go to the bathroom. pt education numerical control programmer light. bed alarm on. no needs at this time. call light in reach
[2018-06-20 19:38] VITALS: BP 114/61; PULSE 110; TEMP 98.2
[2018-06-21 00:39] VITALS: BP 122/57; PULSE 100; TEMP 98.8
[2018-06-21 04:12] VITALS: BP 98/62; PULSE 86; TEMP 98.2
--- NOTE | 2018-06-21 05:14 | NUR ---
changed pt chest tube suture dressing. sheets changed. reporting no pain at this time. call light in reach. bed alarm on.
--- NOTE | 2018-06-21 05:16 | NUR ---
pt had an uneventful night. reported pain in legs, prn meds given and reported releif. pt hays is draining yellow urine freely, free of kinks, secured to leg. pt on 3L via NC. requested a shower during the day. chest tube dressing and bed lines changed once d/t leaking. no needs a this time call light in reach
--- NOTE | 2018-06-21 05:27 | NUR ---
pt had one BM at 1900 last night. abd distened. minimal swelling in feet. no needs at this time. call light in reach. bed alarm on
--- NOTE | 2018-06-21 07:27 | NUR ---
REPORT GIVEN TO KAYE RENEE. PT DENIES NEEDS AT THIS TIME.
[2018-06-21 08:14] VITALS: BP 130/66; PULSE 110; TEMP 98.1
--- NOTE | 2018-06-21 08:30 | NUR ---
PT is A+Ox3, pleasant, c/o ache to BLE but refusing pain meds. Pt assisted as standby to bathroom to have a loose BM. Weiss gravity draining dark yellow urine with sediment. Site to Rt torso where chest tube was removed is draining significant amount of serous drainage, will drip down his torso when he stands. This RN changed dressing, a vaseline gauze with 2 ABDs and tegaderm over. Compelte linen change and gown provided as his bed was saturated. Physical assessmetn compelted, PICC to Rt upper arm free of redness, swelling, there is blood return x2. Pt denies needs, will cotninue to [facility]
[2018-06-21 11:28] LABS: BASO # 0.1 (0.0-0.2); BASO % 0.4 % (0.0-2.0); EOS # 0.5 (0.0-0.7); EOS % 3.8 % (0-4.0); GRAN % 72.9 % (42.2-75.2); HEMOGLOBIN 10.7 g/dl (13.5-18.0); LYMPH # 1.7 (1.2-3.4); LYMPH % 12.3 % (20.0-51.0); MEAN CELL VOLUME 99 fl (80.0-100.0); MEAN CORPUSCULAR HEMOGLOBIN 34 pg (27.0-31.0); MEAN CORPUSCULAR HGB CONC 35 g/dl (33.0-37.0); MEAN PLATELET VOLUME 10.8 fl (7.4-10.4); MONO # 1.4 (0.1-0.6); MONO % 10.1 % (1.7-9.3); PLATELET COUNT 174 K/mm3 (130-400); RED BLOOD COUNT 3.11 M/mm3 (4.20-5.60); REDCELL DISTRIBUTION WIDTH-CV 14.7 % (11.5-14.5)
[2018-06-21 11:30] LABS: HEMATOCRIT 30.8 % (42.0-52.0)
[2018-06-21 11:40] LABS: ALBUMIN 2.5 gm/dL (3.5-5.0); BILIRUBIN,TOTAL 2.4 mg/dL (0.0-1.0); CALCIUM 8.5 mg/dL (8.4-10.2); CREATININE, serum 0.97 mg/dL (0.66-1.25); POTASSIUM 4.5 mmol/L (3.4-5.0)
[2018-06-21 12:26] VITALS: BP 113/55; PULSE 104; TEMP 98.7
--- NOTE | 2018-06-21 14:17 | NUR ---
Dressing change performed, 2 abd's were saturated with serous drainage. New dressing applied, tp denies needs. ольга hart rn
--- NOTE | 2018-06-21 17:30 | NUR ---
Pt sitting up in bed, reports pain to bilat legs 8 out of 10 on pain scale but refuses medication at this time, states, "I'll wait until later." Sched medications administered. No further needs reported. Call light in reach.
[2018-06-21 17:54] VITALS: BP 105/57; PULSE 106; TEMP 98.4
[2018-06-21 20:16] VITALS: BP 102/53; PULSE 102; TEMP 98.1
--- NOTE | 2018-06-21 22:03 | NUR ---
Patient complained of level 8 pain to BLE. Given PRN Percocet around 1900. Aso assisted into sitting position on side of bed as requested to help with pain. Dressing to right chest tube removal on right rib cage area was changed at that time as well. Large amount of liquid drainage, with yellow tinge color was noted to old ABD pads. New dressing applied. Denies having pain and discomfort to area. When assessed at 1999, pain decreased to a 5. Telemetry is intact. Dressing to left side of abdomen is intact. LS with coarse crackles throughout. Occasional moist cough present. Unable to observe any sputum. Complaints of SOB with exertion. RT in, and increased oxygen. Abdomen distended and firm. Denies pain and discomfort to abdomen. Bowel sounds active x 4. Indwelling hays catheter is patent, and draining dark yellow urine with small amounts of sediment present. Catheter care provided. Resting in bed at this time. Call light is within reach.
[2018-06-22] VITALS (8 sets, daily range): BP systolic 107–116; BP diastolic 54–66; PULSE 92–105; TEMP 97.7–99
--- NOTE | 2018-06-22 05:47 | NUR ---
Dressing changed to right trunk/rib cage area from chest tube that was taken out. Old dressing saturated with fluid, yellow tinged in color on old ABD pads. New dressings applied: 2 ABDs and 2 large tegaderms. Hospital gown and blankets changed. Continues to be on oxygen at 4 L/min via NC. Voices no other needs or concerns at this time. Resting in bed with eyes closed at this time. Call light is within reach.
[2018-06-22 06:24] LABS: POTASSIUM 4.4 mmol/L (3.4-5.0)
[2018-06-22 06:34] LABS: PRE ALBUMIN 6.5 mg/dL (17.6-36.0)
--- NOTE | 2018-06-22 08:30 | NUR ---
Pt is A+Ox3, pleasant, c/o 5-10/19 pain to lower spine, meds provided. Physical assessment complete. Lungs are somewhat diminished, pt on oxygen via NC at 3 L. Weiss is gravity draining dark yellow urine with sediment. Rt torso site where chest tube was is still draining serous drainage to saturate 2 ABD's every 2-4 hours. Pt denies pain at site, denies SOB. He is up walking to bathroom with standby assist, working wit PT. PICc to EVERARDO free of redness, swelling, patent wit blood return. Denies needs, will continue to monitor, call neymar rajan
--- NOTE | 2018-06-22 10:52 | NUR ---
JULIA spoke with Negar from [facility]. SHe reports she is waiting to hear back from insurance in regards to IPR. JULIA also spoke with Kyler from [facility]. He reports he will come speak with patient. JULIA informed Kyler that our IPR is patient's first choice.
--- NOTE | 2018-06-22 11:40 | NUR ---
SW attended clinical rounds. Dr would like surgery to see patient but patient may be able to go to [facility] tomorrow as long as insurance approves.
--- NOTE | 2018-06-22 16:31 | NUR ---
Through shift pt remained A+Ox3, cooperative with PT and able to walk to bathroom/down barba with standby assist. Vitals stable. C/o pain in back, meds resolve. Pt has had increased appetite than previous days. Rt torso continues to drain significant amount of serous drainage from site of pulled chest tube. Weiss removed, and pt has voided with small amount of post void bladder residual. Pt resting at this time. Call light in reach
--- NOTE | 2018-06-22 19:16 | NUR ---
Report given to Dary RESTREPO, pt resting. Had several dressing changes today, vitals remained stable, pt voiding in urinal after Avalos discontinued. No needs at this time, call light in reach
--- NOTE | 2018-06-22 22:05 | NUR ---
Patient assessed at this time. Complained of level 8 pain to BLE. Given PRN Percocet for pain. on oxygen at 3 L/min via NC. Denie having SOB and dyspnea. LS CTA. Respirations even and unlabored. Heart with regular rate and rhythm. Dressing to chest tube site is CDI. Denies having pain and discomfort to area. Bowel sounds active x 4. Abdomen is distended and soft. Denies pain to abdomen. Has been able to urinate. Denies having pain, burning, and discomfort with urination. Denies having feelings of urinary frequency, urgency, and retention. Resting in bed at this time. Call light is within reach. Voices no needs at this time.
--- NOTE | 2018-06-22 23:51 | NUR ---
Resting in bed with eyes closed at this time.
[2018-06-23] VITALS (7 sets, daily range): BP systolic 90–119; BP diastolic 51–78; PULSE 97–110; TEMP 97.5–98.3
--- NOTE | 2018-06-23 04:29 | NUR ---
DOLL SURGEON reports patient bed and gown saturated. Upon assessment, dressing to right trunk where previous chest tube was placed is saturated and leaking clear yellow fluid. Dressing changed. Skin appears irriated from tegaderm adhesive. Applied "no sting barrier film" prior to replacing tegaderms. Bedding and gown changed. Patient began to vomit <50 ml of clear emesis. Reports "Feels like I was moving around too fast." Denies any further nausea after episode of vomiting. Resting in bed. Denies any other needs. Call light in reach. Will monitor.
--- NOTE | 2018-06-23 05:32 | NUR ---
Patient awake laying in bed. Denies having pain and discomfort. Denies having any needs. Continues to wear oxygen at 3 L/min via NC. Denies having SOB and dyspnea at rest, states he continues to get SOB with exertion. Has been able to urinate throughout the night. Denies having burning, pain, and discomfort with urination. Denies having feelings of urinary frequency, urgency, and retention. Dressing to right side of trunk where chest tube was is CDI at this time. Resting in bed at this time. Call light is within reach.
[2018-06-23 06:17] LABS: BASO # 0.1 (0.0-0.2); BASO % 0.4 % (0.0-2.0); EOS # 0.5 (0.0-0.7); GRAN # 12.1 (1.4-6.5); GRAN % 73.3 % (42.2-75.2); HEMOGLOBIN 11.3 g/dl (13.5-18.0); LYMPH # 2.2 (1.2-3.4); LYMPH % 13.5 % (20.0-51.0); MEAN CELL VOLUME 97 fl (80.0-100.0); MEAN CORPUSCULAR HEMOGLOBIN 34 pg (27.0-31.0); MEAN CORPUSCULAR HGB CONC 35 g/dl (33.0-37.0); MONO # 1.6 (0.1-0.6); MONO % 9.4 % (1.7-9.3); PLATELET COUNT 208 K/mm3 (130-400); RED BLOOD COUNT 3.34 M/mm3 (4.20-5.60); REDCELL DISTRIBUTION WIDTH-CV 14.9 % (11.5-14.5)
[2018-06-23 06:23] LABS: HEMATOCRIT 32.5 % (42.0-52.0)
[2018-06-23 06:30] LABS: INR 1.6 (0.8-3.0); PROTHROMBIN TIME 18.3 SECONDS (9.7-12.8)
[2018-06-23 06:37] LABS: ALBUMIN 2.7 gm/dL (3.5-5.0); BILIRUBIN,TOTAL 3.1 mg/dL (0.0-1.0); CALCIUM 9.2 mg/dL (8.4-10.2); CREATININE, serum 0.96 mg/dL (0.66-1.25); POTASSIUM 4.4 mmol/L (3.4-5.0); TOTAL PROTEIN 7.6 gm/dL (6.4-8.2)
--- NOTE | 2018-06-23 07:04 | NUR ---
Report given to KAYE Duarte. Resting in bed asleep. Call light in reach.
--- NOTE | 2018-06-23 08:30 | NUR ---
Pt is A+Ox3, pleasant, denies pain at this time, denies SOB. Oxygen applied at 3 L via NC. Rt torso site dressing has small amount of serous drainage collected in corner but otherwise CDI. Pt abdomen is still very distended. Pt voiding in urinal, denies issues. PICc to EVERARDO free of redness, swelling at site and blood return x2. call light in reach.
--- NOTE | 2018-06-23 16:00 | NUR ---
JULIA informed that patient's insurance denied approval for IPR. JULIA left message for Kyler at [facility] to find out if they can accept.
--- NOTE | 2018-06-23 17:09 | NUR ---
Rt torso dressing changed, 2 ABD's fully saturated with yellow serous drainage. Sutures in place, surrounding tissues is erythemous, no swelling. Replaced occlusive gauze, 2 ABD;s and tegaderm. Fresh gown provided. Pt denies pain and needs at this time. SCd;s applied. Oxygen at 2 [address] via NC in [address]. vitals stable through day, pt has c/o back pain and received pain meds. no further needs
--- NOTE | 2018-06-23 19:13 | NUR ---
Report given to Dary Casarez, pt denies needs, family at bedwide
--- NOTE | 2018-06-23 20:30 | NUR ---
Resting in bed watching TV. Assessment complete. Lungs diminshed throughout all muro. Denies any shortness of breath or dyspnea. Heart sounds normal. Bowels active x4. ABD is firm. Previous chest tube site is drainaging clear yellow drainage onto dressing. Changed at this time with 2 ABD pads and tegaderm. Reports 12/19 "spinal, back, and leg pain." Provided with percocet PRN as ordered. Urinating into urinal clear yellow urine. Denies any other needs at this time. Call light in reach.
--- NOTE | 2018-06-23 23:15 | NUR ---
Dressing to right trunk, chest tube site changed. Gown and linen changed at this time. Denies pain. Denies needs.
--- NOTE | 2018-06-24 02:11 | NUR ---
Resting in bed asleep. Call light in reach.
--- NOTE | 2018-06-24 04:15 | NUR ---
Resting in bed asleep. Call light in reach.
[2018-06-24 04:20] VITALS: BP 90/58; PULSE 99; TEMP 98.6
--- NOTE | 2018-06-24 06:13 | NUR ---
Resting in bed this AM. Denies any pain. Dressing does not appear to have drainage at this time. Water pitcher refilled with 900mls for the day. Denies any other needs. Call light in reach.
--- NOTE | 2018-06-24 06:30 | NUR ---
Report on to KAYE Gaytan
[2018-06-24 06:33] LABS: HEMOGLOBIN 10.9 g/dl (13.5-18.0); MEAN CELL VOLUME 98 fl (80.0-100.0); MEAN CORPUSCULAR HEMOGLOBIN 34 pg (27.0-31.0); MEAN CORPUSCULAR HGB CONC 35 g/dl (33.0-37.0); MEAN PLATELET VOLUME 10.9 fl (7.4-10.4); PLATELET COUNT 220 K/mm3 (130-400); REDCELL DISTRIBUTION WIDTH-CV 14.7 % (11.5-14.5)
[2018-06-24 06:35] LABS: HEMATOCRIT 31.2 % (42.0-52.0)
[2018-06-24 06:45] LABS: ALBUMIN 2.6 gm/dL (3.5-5.0); BILIRUBIN,TOTAL 2.9 mg/dL (0.0-1.0); CALCIUM 9.2 mg/dL (8.4-10.2); CREATININE, serum 0.99 mg/dL (0.66-1.25); POTASSIUM 4.4 mmol/L (3.4-5.0); TOTAL PROTEIN 7.6 gm/dL (6.4-8.2)
[2018-06-24 07:00] VITALS: BP 107/61; PULSE 101; TEMP 98.8
--- NOTE | 2018-06-24 07:00 | NUR ---
Shift assessment completed. VSS. AO x4. O2 per nasal cannula @ 3L, telemetry active, PICC line in R upper arm intact. Incision site at right lateral chest wall with ABD dressing. dressing is CDI at this time. Abrasions to trunk on right side. Abdomen soft and distended r/t ascites. Bandaide on incision to left abdomen. Cap refill >3 seconds to peripherial. pedal pulses faint to palpation. Urinal emptied of 250 ml clear zackery urine.
[2018-06-24 07:25] LABS: BAND 1 % (0-10); EOSINOPHIL 1 % (0-4); LYMPHOCYTE 14 % (20.0-51.0); NEUTROPHILS 81 % (42.0-75.2); PLATELET ESTIMATE NORMAL (NORMAL)
--- NOTE | 2018-06-24 08:00 | NUR ---
PT ALERT AND ORIENTED X4. PT'S SKIN SLIGHTLY JAUNDICED, DRY, AND DUSKY. JAUNDICE NOTED TO SLCERA. PT ON 3L NC. PT HAS SOME DYSPNEA WITH EXERTION. PT'S LUNGS ARE NOTED TO BE DIMINISHED TO RIGHT LUNG ERNST, FINE EXPIRATORY CRACKLES TO RIGHT LOWER LOBE, LEFT UPPER LUNG CLEAR, LEFT LOWER LOBE DIMINISHED. PT HAS PRODUCTIVE COUGH BUT IS UNABLE TO EXPECTORATE. PT'S ABDOMEN DISTENDED D/T HX OF ASCITES. ABD SOFT, NONTENDER. BOWEL SOUNDS HYPERACTIVE THROUGHOUT. PT HAS DRESSING TO RIGHT LATERAL CHEST FROM PREVIOUS CHEST TUBE PUNCTURE SITE. MODERATE AMT OF SEROUS DRAINAGE NOTED TO DRESSING. PT HAS BANDAID TO LEFT LOWER ABD FROM PREVIOUS PARACENTESIS SITE. NO LOWER EXT EDEMA NOTED. PT'S PULSES BILATERAL TO POPLITEAL AREA VERY WEAK, DIFFICULT TO PALPATE. VERY WEAK PULSES NOTED TO DORSALIS PEDIS PULSES TO BILATERAL LOWER EXTREMITIES. VERY WEAK PULSES TO BILATERAL POST TIB PULSES. PT VOIDING IN URINAL WITHOUT DIFFICULTY.
--- NOTE | 2018-06-24 09:00 | NUR ---
Dopplar used on BLE. Dorsalis pedis located via doplar. sites marked with pen.
--- NOTE | 2018-06-24 09:15 | NUR ---
Pain rated in legs at 5/10 when resting. RN Lucila alerted.
--- NOTE | 2018-06-24 09:42 | NUR ---
PT REQUIRES 3L AT REST. SPO2 DECREASED TO 87% ON RA. PT WALKING WITH PHYSICAL THERAPY 88% ON 6L.
[2018-06-24 11:00] VITALS: BP 105/60; PULSE 104; TEMP 98.1
--- NOTE | 2018-06-24 11:00 | NUR ---
Vs taken Pt. resting. rates pain at 7-8/10 in back and legs. RN Lucila alerted. Oral care provided. ABD pad shows yellow drainage present.
--- NOTE | 2018-06-24 14:23 | NUR ---
PT TAKEN VIA WHEELCHAIR TO ULTRASOUND BY KAYE.
--- NOTE | 2018-06-24 14:30 | NUR ---
PT RETURNED FROM ULTRASOUND VIA WHEELCHAIR BY TECH
--- NOTE | 2018-06-24 15:23 | NUR ---
JULIA met with patient about home health and DME choices. Patient reported he would like JULIA to contact his son. JULIA contacted patient's son, Delbert. Delbert reported he has spoke with Miranda at [facility] about patient going there for rehab. JULIA reported she would contact Miranda. JULIA then called Miranda. She reports she has not looked at his paperwork yet but she will before the end of the day and she would like JULIA to call tomorrow morning.
--- NOTE | 2018-06-24 15:27 | NUR ---
DRESSING CHANGED TO RIGHT LATERAL CHEST FROM PREVIOUS CHEST TUBE SITE. PT HAS LARGE AMT OF SEROUS DRAINAGE, DRESSING WAS SATURATED UPON REMOVAL. 4X4 GAUZE, ABD PLACED ON SITE WITH LARGE TEGADERM TO SECURE AREA.
[2018-06-24 16:18] VITALS: BP 101/59; PULSE 109; TEMP 97.9
--- NOTE | 2018-06-24 19:39 | NUR ---
PT IS laying in bed A+Ox4. [pain 8/10- prn meds given. dressing dry and intact no soa. reports no BMs today. no needs at this time. call light in reach
[2018-06-24 21:03] VITALS: BP 101/58; PULSE 100; TEMP 98.5
--- NOTE | 2018-06-24 22:56 | NUR ---
PICC flushes well with blood return noted, no redness or swelling noted. pt abd is distended.
[2018-06-25 00:34] VITALS: BP 91/63; PULSE 104; TEMP 98
[2018-06-25 05:16] VITALS: BP 101/58; PULSE 96; TEMP 98.7
--- NOTE | 2018-06-25 05:22 | NUR ---
PT HAD AN UNEVENTFUL NIGHT. PT DRESSING STAYED DRY AND INTACT THROUGHOUT NIGHT. PT USED URINAL DURING NIGHT. REPORTED SOME 8/10 PAIN IN TAILBONE AND LEGS AT THE BEGINNING OF NIGHT, PRN MEDS REPORTED TO HELP. PICC FLUSHES WELL, WITH BLOOD RETURN NOTED. NO NEEDS AT THIS TIME . CALL LIGHT IN REACH
[2018-06-25 06:10] LABS: BASO # 0.1 (0.0-0.2); BASO % 0.5 % (0.0-2.0); EOS # 0.8 (0.0-0.7); EOS % 5.1 % (0-4.0); GRAN # 10.2 (1.4-6.5); GRAN % 68.2 % (42.2-75.2); HEMATOCRIT 30.6 % (42.0-52.0); HEMOGLOBIN 10.8 g/dl (13.5-18.0); LYMPH # 2.5 (1.2-3.4); LYMPH % 16.3 % (20.0-51.0); MEAN CELL VOLUME 96 fl (80.0-100.0); MEAN CORPUSCULAR HEMOGLOBIN 34 pg (27.0-31.0); MEAN CORPUSCULAR HGB CONC 35 g/dl (33.0-37.0); MONO # 1.4 (0.1-0.6); MONO % 9.5 % (1.7-9.3); PLATELET COUNT 213 K/mm3 (130-400); RED BLOOD COUNT 3.18 M/mm3 (4.20-5.60)
[2018-06-25 06:13] LABS: INR 1.6 (0.8-3.0); PROTHROMBIN TIME 18.2 SECONDS (9.7-12.8)
[2018-06-25 06:21] LABS: ALBUMIN 2.6 gm/dL (3.5-5.0); BILIRUBIN,TOTAL 2.8 mg/dL (0.0-1.0); CALCIUM 9.3 mg/dL (8.4-10.2); CREATININE, serum 1.05 mg/dL (0.66-1.25); POTASSIUM 4.4 mmol/L (3.4-5.0); TOTAL PROTEIN 7.4 gm/dL (6.4-8.2)
--- NOTE | 2018-06-25 07:10 | NUR ---
report given to KAYE Harrell. pt denied needs at this time.
[2018-06-25 08:10] VITALS: BP 104/63; PULSE 104; TEMP 98.6
--- NOTE | 2018-06-25 09:53 | NUR ---
JULIA attended clinical rounds to discuss discharge planning. Miranda at [facility] is looking to see if patient can go there for rehab. Parrott will update JULIA this afternoon. If patient is not accepted to [facility], he will go home with home health and home O2.
--- NOTE | 2018-06-25 10:20 | NUR ---
PT SITTING IN BED ON 2 LPM NC. SPO2 94. O2 TAKEN OFF. PT WALKED TO BATHROOM AND BACK SPO2 83. O2 ON @ 3 LPM WHILE PT WALKED WITH PT AND RT APPROX 100 FEET SPO2 [id number]. O2 TURMED UP TO 4 LPM FOR RETURN TO ROOM. SPO2 89. PT BACK IN ROOM RESTING ON EDGE OF BED O2 BACK TO 2 LPM SPO2 90.
[2018-06-25 12:18] VITALS: BP 108/65; PULSE 108; TEMP 98.4
--- NOTE | 2018-06-25 13:26 | NUR ---
Assessment entered by student nurse reviewed and agreed by this nurse.
--- NOTE | 2018-06-25 13:45 | NUR ---
ASSISTED SHARMAINE RESTREPO WITH [phone] PATIENT CARE. PATIENT CARE WAS UNEVENTFUL.
--- NOTE | 2018-06-25 14:55 | NUR ---
JULIA rec's a call from Miranda from [facility], they will be able to accept patient tomorrow. JULIA will contact patients son with this information.
[2018-06-25 16:30] VITALS: BP 108/59; PULSE 111; TEMP 97.8
[2018-06-25 19:50] VITALS: BP 106/59; PULSE 110; TEMP 98.4
[2018-06-26 01:47] VITALS: BP 107/59; PULSE 103; TEMP 98.2
--- NOTE | 2018-06-26 06:00 | NUR ---
pt had uneventful noc. no issues or conserns voiced. appeared to have rested well
[2018-06-26 07:23] LABS: BASO # 0.1 (0.0-0.2); BASO % 0.4 % (0.0-2.0); EOS # 0.8 (0.0-0.7); EOS % 5.5 % (0-4.0); GRAN # 9.7 (1.4-6.5); GRAN % 67.6 % (42.2-75.2); HEMOGLOBIN 10.9 g/dl (13.5-18.0); LYMPH # 2.2 (1.2-3.4); LYMPH % 15.5 % (20.0-51.0); MEAN CELL VOLUME 97 fl (80.0-100.0); MEAN CORPUSCULAR HEMOGLOBIN 34 pg (27.0-31.0); MEAN CORPUSCULAR HGB CONC 35 g/dl (33.0-37.0); MONO # 1.5 (0.1-0.6); MONO % 10.5 % (1.7-9.3); PLATELET COUNT 220 K/mm3 (130-400); REDCELL DISTRIBUTION WIDTH-CV 14.6 % (11.5-14.5)
[2018-06-26 07:25] LABS: HEMATOCRIT 30.9 % (42.0-52.0)
[2018-06-26 07:28] LABS: INR 1.6 (0.8-3.0); PROTHROMBIN TIME 18.3 SECONDS (9.7-12.8)
[2018-06-26 07:33] LABS: ALBUMIN 2.7 gm/dL (3.5-5.0); CALCIUM 9.6 mg/dL (8.4-10.2); CREATININE, serum 1.02 mg/dL (0.66-1.25); POTASSIUM 4.4 mmol/L (3.4-5.0); TOTAL PROTEIN 7.6 gm/dL (6.4-8.2)
[2018-06-26 08:14] VITALS: BP 111/66; PULSE 107; TEMP 98.2
--- NOTE | 2018-06-26 08:45 | NUR ---
PICC intact right upper arm. With sterile technique right upper arm PICC dressing change done with insertion site cleansed with ChloraPrep 1, impregnated chlorhexidine disc applied, skin prep, StatLock, and Tegaderm applied. No signs or symptoms of IV complications noted. No concerns voiced. Arm wrapped with Daryl to protect catheter.
[2018-06-26] MEDS ORDERED: ALDACTONE 100M100 MG PO (08:47)
[2018-06-26] MEDS ORDERED: LACTULOSE10 GM/153 PO (08:48)
[2018-06-26] MEDS ORDERED: BD POSIFLUSH SF10 ML IV (08:48)
[2018-06-26] MEDS ORDERED: THIAMINE 1100 MG/TAB PO (08:49)
[2018-06-26] MEDS ORDERED: LASIX 20MG TABL20 MG PO (08:49)
[2018-06-26] MEDS ORDERED: MULTI VITAMINS1 TAB PO (08:49)
[2018-06-26] MEDS ORDERED: FOLIC ACID 11 MG/TA1 PO (08:49)
[2018-06-26] MEDS ORDERED: K-TAB20 PO (09:52)
[2018-06-26] MEDS ORDERED: ROXICODONE 55 MG/TAB PO (09:52)
[2018-06-26 12:42] VITALS: BP 106/65; PULSE 112; TEMP 98.2
[2018-06-26 12:59] VITALS: BP 106/65; PULSE 112; TEMP 98.2
--- NOTE | 2018-06-26 13:12 | NUR ---
JULIA spoke with patient's son, Delbert. Delbert reports his fiance gets off work at 3pm and they are hoping to be here at 3:30pm to take patient to [place]. JULIA faxed orders to [place] [facility].
--- NOTE | 2018-06-26 13:22 | NUR ---
rEPORT given to Dea RESTREPO, all questions answered
--- NOTE | 2018-06-26 13:27 | NUR ---
Primary nurse was assisted with [phone] patient care by [employer] student Nanda Tamez and [facility] instructor Alice BRITO.
[2018-06-26 16:00] VITALS: BP 106/65; PULSE 112; TEMP 98.2
--- NOTE | 2018-06-26 16:28 | NUR ---
Report called to Dea RESTREPO some time ago, Discharge papers and plans discussed with pt and his son, all questions answered. PICC staying in arm per orders. pt dressing to Rt torso is CDI. Additional skin prep/protection swabs included in pt's personal belongings. Oxygen tank accompanying pt, denitrator operator will return. Cap changes performed on PICC before d/c. No furtehr needs. Through day pt vitals remain stable, c/o pauin resolved with meds. He urinated regularly. denies needs
== END 2018-06-26 16:33 | disposition swing bed (61) | DRG 207 ==
LOC: COL.ER 11:56 → ICU 13:08 → MEDICAL 06-19 14:27
PROVIDERS: Anesthesiology Critical Care Medicine; Family Medicine; Hospitalist; Internal Medicine Critical Care Medicine; Internal Medicine Gastroenterology; Internal Medicine Pulmonary Disease; Nurse Practitioner Family; Physician Assistant; ADMIT Family Medicine
PROC: 0W9G3ZZ Drainage of Peritoneal Cavity, Percutaneous Approach (ICD-10-PCS; 2018-06-11)
PROC: 5A1955Z Respiratory Ventilation, Greater than 96 Consecutive Hours (ICD-10-PCS; principal; 2018-06-12)
PROC: 0W9930Z Drainage of Right Pleural Cavity with Drainage Device, Percutaneous Approach (ICD-10-PCS; 2018-06-13)
PROC: 0W9G3ZZ Drainage of Peritoneal Cavity, Percutaneous Approach (ICD-10-PCS; 2018-06-16)
PROC: 0W993ZZ Drainage of Right Pleural Cavity, Percutaneous Approach (ICD-10-PCS; 2018-06-17)
DX: J96.01 Acute respiratory failure with hypoxia (principal); J18.9 Pneumonia, unspecified organism; G93.41 Metabolic encephalopathy; E87.1 Hypo-osmolality and hyponatremia; J91.8 Pleural effusion in other conditions classified elsewhere; K72.90 Hepatic failure, unspecified without coma; D53.9 Nutritional anemia, unspecified; E78.5 Hyperlipidemia, unspecified; G89.29 Other chronic pain; M54.9 Dorsalgia, unspecified; K21.9 Gastro-esophageal reflux disease without esophagitis; I10 Essential (primary) hypertension; Z72.0 Tobacco use; K70.31 Alcoholic cirrhosis of liver with ascites; F10.10 Alcohol abuse, uncomplicated; Z86.718 Personal history of other venous thrombosis and embolism; R53.81 Other malaise
CPT/HCPCS: 99223-AI; 99232-AI; 99233-AI; 99239; C1751; C9113; J0330; J0456; J0692; J0696; J1940; J2270; J2405; J2543; J2704; J3010; J3370; J3430; J3475; J3480; J7040; J7050; J7060; P9047

== ENCOUNTER → 2018-06-27 | Outpatient (REF) ==
[~2018-06-27] MED LIST changes: +ALDACTONE 100M100 MG PO; +BD POSIFLUSH SF10 ML IV; +DULERA1 AR1 INH; +FOLIC ACID 11 MG/TA1 PO; +K-DUR 10 MEQ T10 MEQ PO; +K-TAB20 PO; +LACTULOSE10 GM/153 PO; +LASIX 20MG TABL20 MG PO; +MULTI VITAMINS1 TAB PO; +PROBIOTIC ACID1 EAC3 PO; +ROXICODONE 55 MG/TAB PO; +THIAMINE 1100 MG/TAB PO
== END ==
LOC: ZLAB.WCH 11:25
DX: Z01.89 Encounter for other specified special examinations (principal)

== ENCOUNTER → 2018-06-29 | Outpatient (REF) | LOC: ZLAB.WCH 18:04 | DX: Z01.89 Encounter for other specified special examinations (principal) ==

== ENCOUNTER → 2018-06-30 | Outpatient (REF) | LOC: ZLAB.WCH 15:58 | DX: Z01.89 Encounter for other specified special examinations (principal) ==

== ENCOUNTER → 2018-07-01 | Outpatient (REF) | LOC: ZLAB.WCH 08:54 | DX: Z01.89 Encounter for other specified special examinations (principal) ==